=== PATIENT | male | born 1950 | race Caucasian/White ===

== ENCOUNTER 2016-07-22 00:14 | Emergency (ER) | payer BC, MEDICARE ==
[2016-07-22] MEDS ORDERED: Aspirin 81 MG Tab.Chew PO ONE (01:14)
[2016-07-22] MEDS ORDERED: Aspirin 81 MG Tab.Chew ONE (01:15)
[2016-07-22 01:23] VITALS: BP 156/123
--- NOTE | 2016-07-22 01:28 | EDM.PDOC ---
ED HPI GENERAL MEDICAL PROBLEM - General Chief Complaint: General Stated Complaint: WEAKNESS, VOMITING Time Seen by Provider: 07/22/16 01:10 Source of Information: Reports: Patient History Limitations: Reports: Other (poor memory) - History of Present Illness INITIAL COMMENTS - FREE TEXT/NARRATIVE: This 65 yo male patient was brought to the ED by family members due to increased weakness and not taking care of himself. The patient reports he has not been taking his medications over the past couple of months, because he doesn 't want to take them. The patient had stents placed 2 years ago in [place]. The patient's family brought him to the ED with his pill bottles which have medications in the bottles, but have not been filled in the past 2 years. The patient does not know when he last saw a primary care provider. The patient currently lives in alone in his own home. The patient's family attempted to give him some chocolate milk this morning, but the patient threw that up. The patient admits to drinking 2-3 beers per day up to 3 days ago. Duration: Week(s):, Constant, Getting Worse Location: Reports: Generalized Quality: Reports: Other (generalized weakness) Severity: Severe Improves with: Reports: None Worsens with: Reports: None Associated Symptoms: Reports: Nausea/Vomiting, Weakness - Related Data Allergies Allergy/AdvReac Type Severity Reaction Status Date / Time No Known Allergies Allergy Verified 07/22/16 00:55 ED ROS GENERAL - Review of Systems Review Of Systems: ROS reveals no pertinent complaints other than HPI. ED EXAM, GENERAL - Physical Exam Exam: See Below Exam Limited By: Other (poor memory of recent events) General Appearance: Alert, WD/WN, Moderate Distress, Thin Eye Exam: Bilateral Eye: EOMI, Normal Inspection, PERRL Ears: Normal External Exam, Normal Canal, Hearing Grossly Normal, Normal TMs Nose: Normal Inspection, Normal Mucosa, No Blood Throat/Mouth: Normal Inspection, Normal Lips, Normal Teeth, Normal Gums, Normal Oropharynx, Normal Voice, No Airway Compromise Head: Atraumatic, Normocephalic Neck: Normal Inspection, Supple, Non-Tender, Full Range of Motion Respiratory/Chest: No Respiratory Distress, Lungs Clear, Normal Breath Sounds, No Accessory Muscle Use, Chest Non-Tender Cardiovascular: No Edema, No Gallop, No JVD, No Murmur, No Rub, Irregularly Irregular GI/Abdominal: Normal Bowel Sounds, Soft, Non-Tender, No Organomegaly, No Distention, No Abnormal Bruit, No Mass (Male) Exam: Deferred Rectal (Males) Exam: Deferred Back Exam: Normal Inspection, Full Range of Motion, NT Extremities: Normal Inspection, Normal Range of Motion, Non-Tender, Normal Capillary Refill, No Pedal Edema Neurological: Alert, Oriented, CN II-XII Intact, Normal Cognition, Normal Gait, Normal Reflexes, No Motor/Sensory Deficits Psychiatric: Normal Affect, Normal Mood Skin Exam: Warm, Dry, Intact, Normal Color, No Rash Lymphatic: No Adenopathy Course - Vital Signs Last Recorded V/S: Last Vital Signs Temp 35.9 C 07/22/16 01:21 Pulse 92 07/22/16 01:21 Resp 16 07/22/16 01:21 BP 156/123 H 07/22/16 01:21 Pulse Ox 97 07/22/16 01:21 - Orders/Labs/Meds Labs: Laboratory Tests 07/22/16 07/22/16 07/22/16 Range/Units 01:25 01:25 01:25 WBC 7.3 (5.0-10.0) 10^3/uL RBC 4.37 L (4.6-6.2) 10^6/uL Hgb 14.3 (14.0-18.0) g/dL Hct 41.8 (40.0-54.0) % MCV 95.7 (80-100) fL MCH 32.7 (27.0-34.0) pg MCHC 34.2 (33.0-35.0) g/dL Plt Count 155 (150-450) 10^3/uL Neut % (Auto) 82.6 H (42.2-75.2) % Lymph % (Auto) 10.1 L (20.5-50.1) % [place] % (Auto) 6.7 (2-8) % Eos % (Auto) 0.3 L (1.0-3.0) % Baso % (Auto) 0.3 (0.0-1.0) % PT 11.6 (9.0-12.0) SEC INR 1.2 (0.9-1.2) Sodium (135-145) mmol/L Potassium (3.6-5.0) mmol/L Chloride (101-111) mmol/L Carbon Dioxide (21.0-31.0) mmol/L Anion Gap BUN (7-18) mg/dL Creatinine (0.6-1.3) mg/dL Est Cr Clr Drug Dosing mL/min Estimated GFR (MDRD) BUN/Creatinine Ratio Glucose (74-105) mg/dL Calcium (8.4-10.2) mg/dl Magnesium 1.9 (1.8-2.5) mg/dL Total Bilirubin (0.2-1.0) mg/dL AST (10-42) IU/L ALT (10-60) IU/L Alkaline Phosphatase (42-121) IU/L Ammonia (11-35) umol/L Troponin I (0.00-0.02) ng/ml Total Protein (6.7-8.2) g/dl Albumin (3.2-5.5) g/dl Globulin Albumin/Globulin Ratio Salicylates < 4.0 Acetaminophen < 10.0 Ethyl Alcohol < 5 mg/dL 07/22/16 07/22/16 Range/Units 01:25 02:30 WBC (5.0-10.0) 10^3/uL RBC (4.6-6.2) 10^6/uL Hgb (14.0-18.0) g/dL Hct (40.0-54.0) % MCV (80-100) fL MCH (27.0-34.0) pg MCHC (33.0-35.0) g/dL Plt Count (150-450) 10^3/uL Neut % (Auto) (42.2-75.2) % Lymph % (Auto) (20.5-50.1) % [place] % (Auto) (2-8) % Eos % (Auto) (1.0-3.0) % Baso % (Auto) (0.0-1.0) % PT (9.0-12.0) SEC INR (0.9-1.2) Sodium 143 (135-145) mmol/L Potassium 3.2 L (3.6-5.0) mmol/L Chloride 105 (101-111) mmol/L Carbon Dioxide 24.0 (21.0-31.0) mmol/L Anion Gap 17.2 BUN 39 H (7-18) mg/dL Creatinine 1.1 (0.6-1.3) mg/dL Est Cr Clr Drug Dosing 60.93 mL/min Estimated GFR (MDRD) > 60 BUN/Creatinine Ratio 35.45 Glucose 164 H (74-105) mg/dL Calcium 10.0 (8.4-10.2) mg/dl Magnesium (1.8-2.5) mg/dL Total Bilirubin 1.1 H (0.2-1.0) mg/dL AST 25 (10-42) IU/L ALT 21 (10-60) IU/L Alkaline Phosphatase 52 (42-121) IU/L Ammonia 21 (11-35) umol/L Troponin I 0.07 H* (0.00-0.02) ng/ml Total Protein 7.2 (6.7-8.2) g/dl Albumin 3.4 (3.2-5.5) g/dl Globulin 3.8 Albumin/Globulin Ratio 0.89 Salicylates Acetaminophen Ethyl Alcohol mg/dL Meds: Medications Discontinued Medications Generic Name Dose Route Start Last Admin Trade Name Freq PRN Reason Stop Dose Admin Aspirin 324 mg 07/22/16 01:14 07/22/16 01:17 Aspirin PO 07/22/16 01:15 324 mg ONETIME ONE Administration Aspirin Confirm 07/22/16 01:15 07/22/16 02:10 Aspirin Administered 07/22/16 01:16 Not Given Dose 324 mg .ROUTE .STK-MED ONE Heparin Sodium (Porcine) 4,000 units 07/22/16 02:02 07/22/16 02:15 Heparin Sodium IVPUSH 07/22/16 02:03 4,000 units .BOLUS ONE Administration Heparin Sodium/Dextrose 25,000 units in 500 mls @ 19.595 mls/hr 07/22/16 02: 15 07/22/16 02:16 Heparin 25,000 Units In D5w 500 Ml IV 12 units/kg/hr TITRATE ANTONY 19.595 mls/hr 12 UNITS/KG/HR Administration Departure - Departure Time of Disposition: 02:51 Disposition: DC/Tfer to Acute Hospital 02 Condition: Poor Clinical Impression: STEMI (ST elevation myocardial infarction) Qualifiers: Involved coronary artery: unspecified coronary artery Qualified Code(s): I21.3 - ST elevation (STEMI) myocardial infarction of unspecified site - Discharge Information Forms: Interfacility Transfer EMTALA Care Plan Goals: Discussed the examination, history, EKG and lab results with Dr. Altman ( [facility]). Dr. Altman accepted the patient for continued evaluation and management. The patient was transported by [facility].
[2016-07-22 01:59] LABS: CHLORIDE,CL 105 mmol/L (101-111); SODIUM,NA 143 mmol/L (135-145)
[2016-07-22 02:00] LABS: ACETAMINOPHEN < 10.0
[2016-07-22] MEDS ORDERED: Heparin Sodium 5,000 Units/ML Vial IVPUSH ONE (02:02)
[2016-07-22] MEDS ORDERED: Heparin Sodium/D5W 25,000 UNITS/500 ML BAG IV SCH (02:15)
--- NOTE | 2016-08-12 09:31 | EKG ---
07/22/2016- RENE ALFARO - This is a standard 12-lead EKG showing irregular ventricular rate of 67 beats per minute, left ventricular hypertrophy with voltage criteria, old inferior infract, some ST-T changes, on precordial leads. [facility] /[id number]
== END 2016-07-22 02:51 ==
LOC: DL.ED 00:14
DX: I21.3 ST elevation (STEMI) myocardial infarction of unspecified site (principal)
CPT/HCPCS: 36415; 71010; 80053; 82140; 83735; 84484; 85025; 85610; 93005; 93010; 96365; 99285; A9270; G0480; J1644; 99284